=== PATIENT | male | born 1980 ===

== ENCOUNTER 2017-09-09 14:48 | Outpatient (CLI) | payer OTHER | END 2017-09-09 14:49 | disposition home or self-care (01) | LOC: SC 14:48 | PROVIDERS: ATTEND Internal Medicine Pulmonary Disease | DX: G47.30 Sleep apnea, unspecified (principal); G47.10 Hypersomnia, unspecified; R06.83 Snoring; F51.12 Insufficient sleep syndrome | CPT/HCPCS: 99203; 99212 ==

== ENCOUNTER 2017-10-22 19:17 | Outpatient (CLI) | payer OTHER | END 2017-10-22 19:18 | disposition home or self-care (01) | LOC: SC 19:17 | PROVIDERS: ATTEND Internal Medicine Pulmonary Disease | DX: G47.61 Periodic limb movement disorder (principal) | CPT/HCPCS: 95810 ==

== ENCOUNTER 2017-11-07 09:35 | Outpatient (CLI) | payer OTHER | END 2017-11-07 09:36 | disposition home or self-care (01) | LOC: SC 09:35 | PROVIDERS: ATTEND Internal Medicine Pulmonary Disease | DX: G47.61 Periodic limb movement disorder (principal) | CPT/HCPCS: 99212; 99213 ==